=== PATIENT | male | born 1955 | race Caucasian/White ===

== ENCOUNTER → 2016-07-17 | Outpatient (REF) | payer OTHER ==
[~2016-07-17] MED LIST: NORC5TAB PO
[2016-07-17 12:17] LABS: ALBUMIN/GLOBULIN RATIO 1.21 (1.00-1.93); ALKALINE PHOSPHATASE 75 U/L (45-117); ALT/SGPT 46 U/L (12-78); ANION GAP 9 MEQ/L (8-16); AST/SGOT 32 U/L (15-37); BLOOD UREA NITROGEN 19 MG/DL (7-18); CALCIUM LEVEL 8.6 MG/DL (8.8-10.2); CARBON DIOXIDE LEVEL 27 MEQ/L (21-32); CHLORIDE LEVEL 106 MEQ/L (98-107); CHOLESTEROL LEVEL 175 MG/DL (<200); CREATININE FOR GFR 0.92 MG/DL (0.70-1.30); GLOMERULAR FILTRATION RATE > 60.0 (>49); GLUCOSE, FASTING 111 MG/DL (80-110); POTASSIUM SERUM 3.6 MEQ/L (3.5-5.1); SODIUM LEVEL 142 MEQ/L (136-145); TOTAL PROTEIN 7.3 GM/DL (6.4-8.2); TRIGLYCERIDES LEVEL 90 MG/DL (<150)
== END ==
LOC: M LABDRAW1 11:32
PROVIDERS: ATTEND Family Medicine
DX: R73.01 Impaired fasting glucose (principal); E78.2 Mixed hyperlipidemia

== ENCOUNTER 2016-10-30 12:20 | Observation (INO) | payer OTHER ==
[~2016-10-30] VITALS: Ht 172.7 cm; Wt 85.2 kg
[~2016-10-30 12:20] MED LIST changes: +NORC1TAB4 PO; -NORC5TAB PO
[2016-10-30] MEDS ORDERED: VITA200016 PO (12:28)
[2016-10-30] MEDS ORDERED: LISI10TA4 PO (12:28)
[2016-10-30] MEDS ORDERED: ONDANSETRON 4MG/2ML VIAL (J2405) IV ONE (13:15)
[2016-10-30] MEDS ORDERED: NS 1,000 ML IV ONE (13:15)
[2016-10-30] MEDS: MORPHINE 4 MG/ML 1ML SYRINGE IV PRN ×2 (13:35→14:23)
[2016-10-30 13:46] LABS: BASO % 0.6 % (0.0-1.0); EOS # 0.1 K/mm3 (0.0-0.50); EOS % 0.9 % (0.0-3.0); LARGE UNSTAINED CELL # 0.1 K/mm3 (0.0-0.4); LARGE UNSTAINED CELL % 1.2 % (0.0-4.0); LYMPH # 1.4 K/mm3 (1.5-4.5); LYMPH % 14.4 % (24.0-44.0); MEAN CORPUSCULAR HEMOGLOBIN 31.2 pg (27.0-33.0); MEAN CORPUSCULAR HGB CONC 35.5 g/dl (32.0-36.5); MEAN CORPUSCULAR VOLUME 87.9 fl (80.0-96.0); MONO # 0.6 K/mm3 (0.0-0.8); MONO % 5.9 % (0.0-5.0); NEUTROPHILS # 7.4 K/mm3 (1.8-7.7); PLATELET COUNT, AUTOMATED 198 k/mm3 (150-450); RED CELL DISTRIBUTION WIDTH 12.6 % (11.5-14.5); WHITE BLOOD COUNT 9.6 K/mm3 (4.0-10.0)
[2016-10-30 13:53] LABS: INR 1.11
[2016-10-30 14:13] LABS: ANION GAP 12 MEQ/L (8-16); BLOOD UREA NITROGEN 20 MG/DL (7-18); CALCIUM LEVEL 9.2 MG/DL (8.8-10.2); CARBON DIOXIDE LEVEL 23 MEQ/L (21-32); CHLORIDE LEVEL 107 MEQ/L (98-107); CREATININE FOR GFR 1.03 MG/DL (0.70-1.30); GLOMERULAR FILTRATION RATE > 60.0 (>49); GLUCOSE, FASTING 141 MG/DL (80-110); POTASSIUM SERUM 3.6 MEQ/L (3.5-5.1); SODIUM LEVEL 142 MEQ/L (136-145)
[2016-10-30] MEDS ORDERED: ISOVUE-370 76% 100ML VIAL (Q9967) As Ordered ONE (14:18)
[2016-10-30] MEDS ORDERED: MORPHINE 4 MG/ML 1ML SYRINGE IV ONE (15:00)
--- NOTE | 2016-10-30 15:05 | REP ---
Clinical: Trauma. Technique: Axial contrast enhanced images from the thoracic inlet to the upper abdomen using 100 ml Isovue 370 intravenous contrast material with coronal and sagittal re-formations. Comparison: 07/01/2006. Findings: Lung william demonstrate moderate chronic bibasilar changes along with mild bronchiectasis and minimal scattered areas of pleural thickening which remain relatively stable compared to 2007. A 3 mm soft tissue nodule in the subpleural right lower lobe (image 59) is unchanged. No acute consolidation/contusion, pleural effusion or pneumothorax. No significant nodule or mass lesion. Mediastinum is without evidence for trauma/injury and mild prominence to right hilar lymph nodes along with few scattered mediastinal lymph nodes remain stable compared to 2006. Musculoskeletal structures demonstrate age-related degenerative changes, and a very subtle nondisplaced posterior left ninth rib fracture cannot be excluded. Impression: Chronic stable changes as described above. No acute mediastinal or pleuroparenchymal process. Cannot exclude extremely subtle nondisplaced posterior left ninth rib fracture. Signed by Andreas Day MD 10/30/2016 02:57 P
--- NOTE | 2016-10-30 15:06 | REP ---
Clinical: Trauma. Technique: Axial contrast enhanced images from the lung bases to the pubic symphysis using 100 ml Isovue 370 intravenous contrast material with coronal and sagittal re-formations. Findings: Lung bases demonstrate chronic interstitial changes with mild bronchiectasis and suspected right hilar adenopathy. 3 mm noncalcified nodule in the periphery right lower lobe (image 10). These findings are relatively stable when compared to chest CT dated 2006. Visualized heart and pericardium appear normal. No evidence for solid organ injury. Liver, spleen, pancreas, gallbladder, bilateral adrenal glands and kidneys are normal. The enteric system is without obstruction or acute inflammatory process. Few scattered sigmoid diverticula noted without acute diverticulitis. Pelvis demonstrates normal bladder and coarse calcifications with otherwise normal prostate gland. No ascites. No free air. No adenopathy. Vasculature appears normal for age. Musculoskeletal structures demonstrate a nondisplaced fracture of the L1 and possibly L2 and L3 left transverse processes which should be correlated with physical examination and point of tenderness. The surrounding paraspinal musculature as well as remainder of the musculoskeletal structures appear intact. Impression: 1. Very subtle nondisplaced left L1 transverse process fracture and possible more subtle left transverse process fractures of L2 and L3. No other evidence for abdominopelvic trauma/injury. 2. No evidence for solid organ injury. 3. Scattered sigmoid diverticula without acute diverticulitis. Signed by Andreas Day MD 10/30/2016 02:58 P
[2016-10-30] MEDS ORDERED: ACETAMINOPHEN TAB 650MG DOSE (2X325MG) PO PRN (18:00)
[2016-10-30] MEDS ORDERED: MORPHINE 2 MG/ML 1ML SYRINGE IV PRN (18:00)
[2016-10-30] MEDS ORDERED: PROBCAP14 PO (18:16)
--- NOTE | 2016-10-30 18:57 | HPEPDOC ---
Medical History and Physical Date of Admission 10/30/2016 History and Physical Primary care provider: Dr. Mccord Attending: Dr. Tiana Nugent CHIEF COMPLAINT: Intractable back pain status post fall from a height of approximately 5 feet HISTORY OF PRESENT ILLNESS: Mr. Nagy is a 61-year-old male who was standing on some scaffolding that was approximately 5 feet off the ground while painting his house. This occurred earlier today. He believes that one of the boards may have broken or flipped and he fell to the ground landing on his back on a 2 x 4 that was laying on the concrete. He did not lose consciousness, and does not believe that he struck his head. His did witness the fall as well and she is accompanying him in the emergency department here today. Since the fall he has had intractable back pain, mostly on the left side. He is essentially unable to move around secondary to pain, he is being given 12 mg of morphine in the emergency department with little to no improvement. CT of the chest with contrast cannot exclude a subtle nondisplaced posterior left ninth rib fracture , and a CT of the abdomen and pelvis reveals subtle nondisplaced left transverse process fractures of L1, L2, and L3. Orthopedic surgery was called by the ED provider who recommended that he be admitted to the hospitalist for intractable pain control, but he agreed to be consulted. ALLERGIES: No known drug allergies PAST MEDICAL HISTORY: Hypertension Prediabetes being controlled with diet Hyperlipidemia being controlled with diet PAST SURGICAL HISTORY: Right inguinal hernia repair approximately one year ago Jaw fracture approximately 40 years ago SOCIAL HISTORY: He lives at home with his . He is currently retired. He denies any tobacco use, he does have an occasional glass of wine, and denies illicit drug use. FAMILY HISTORY: He states that diabetes is prevalent in his family, both his parents, many of his siblings, and some of his aunts and uncles all have diabetes. A few of them also have heart disease as well. He does have an uncle with colon cancer REVIEW OF SYSTEMS: Constitutional: Patient denies fevers, chills, night sweats, recent weight gain/ loss. HEENT: Patient denies blurred or double vision, transient visual disturbances, postnasal drip, epistaxis, sore throat, difficulty chewing or swallowing food. Cardiovascular: Patient denies palpitations, exertional dyspnea, orthopnea, edema of the extremities, claudication. Respiratory: Patient denies dyspnea, wheezing, cough, hemoptysis, sputum production. Gastrointestinal: Patient denies nausea, vomiting, diarrhea, constipation, melena, hematochezia, hematemesis, jaundice. Musculoskeletal: He is in a significant amount of pain, the worst part is his left back. He also states that he has spasms wrapping around both sides of the lower rib cage. The pain is described as severe, spasmodic, unrelenting. There is no radiation. Onset was a few hours ago after his fall. PHYSICAL EXAMINATION: Vitals: Temperature 95.1, pulse 84 regular, respiratory rate 18, blood pressure 163/92, pulse oximetry is 92% on room air General: Awake, alert, oriented 3. He does appear to be in a significant amount of pain. He is barely able to roll over for the examination. Otherwise, he remains essentially motionless in the ED stretcher. HEENT: Head normocephalic atraumatic, conjunctiva are pink, sclera are nonicteric, buccal mucosa is pink and moist with no lesions in the oropharynx. He is missing multiple teeth. Hearing is grossly intact to conversation. Respiratory: Clear to auscultation bilaterally with no wheezes, rales, or rhonchi. Cardiovascular: Regular rate and rhythm, with no rubs, gallops, or murmur. Abdomen: Soft, tender in the midepigastric area and extending out along the bilateral infracostal areas, nondistended, no hepatosplenomegaly appreciated. Bowel sounds present. Extremities: 2+ pulses in the radial and dorsalis pedis bilaterally. No evidence of clubbing or cyanosis. Integument: He does have just a minimal amount of ecchymoses over the the mid lower back Musculoskeletal: He does have multiple muscle spasms in his paraspinal musculature, as well as in the intercostal musculature of the lower ribs, as well as the upper abdomen. ASSESSMENT: 1. Intractable back pain status post fall 2. Hypertension 3. Vitamin D deficiency 4. DVT prophylaxis with Lovenox PLAN: Will admit him to [facility] for O2 monitoring as he is essentially a narcotic na ve patient. Pain control will be achieved with Percocets, as needed IV morphine , and cyclobenzaprine for muscle spasms. He will have Zofran IV available as needed for nausea. Will recommend physical therapy evaluate and treat him as necessary. Dr. Laureano of orthopedic surgery has been contacted by the ED physician and consulted. We will continue his lisinopril for hypertension, his blood pressure was elevated which is most likely due to his pain. We'll continue his vitamin D supplementation for vitamin D deficiency. The patient does report that he suffered from constipation with the use of opiates in the past, therefore we will preemptively start him on Senokot-S. Hopefully we can assist him in gettting through this acute phase of intractable pain in a monitored setting until such time that he is able to adequately function to take care of himself at home. 1 L of normal saline was given to the patient in the ED for an elevated BUN to creatinine ratio. A CBC was ordered daily for 3 days as the patient is on Lovenox for DVT prophylaxis. No additional labs will be ordered as I feel that this will be a waste of resources, and I do not anticipate that he would have any new electrolyte imbalances, or kidney issues. Further diagnostics may be warranted if the patient begins to exhibit any new symptoms. My preceptor for this patient encounter was physically present in the building during the encounter and was fully available. As needed, all aspects of the patient interview, examination, medical decision making process, and medical care plan development were reviewed and approved by the preceptor. Preceptor is aware and concurs with the plan as stated in the body of this note and will attest to such by his/her cosignature. Vital Signs Vital Signs Date Time Temp Pulse Resp B/P (MAP) Pulse Ox O2 Delivery O2 Flow Rate FiO2 10/30/16 15:05 18 10/30/16 13:09 10/30/16 12:20 95.1 84 92 Room Air Laboratory Data Labs 24H Laboratory Tests 2 10/30/16 13:28: White Blood Count 9.6, Red Blood Count 5.00, Hemoglobin 15.6, Hematocrit 43.9, Mean Corpuscular Volume 87.9, Mean Corpuscular Hemoglobin 31.2, Mean Corpuscular Hemoglobin Concent 35.5, Red Cell Distribution Width 12.6, Platelet Count 198, Neutrophils (%) (Auto) 77.0H, Lymphocytes (%) (Auto) 14.4L, Monocytes (%) (Auto) 5.9H, Eosinophils (%) (Auto) 0.9, Basophils (%) (Auto) 0.6 , Neutrophils # (Auto) 7.4, Lymphocytes # (Auto) 1.4L, Monocytes # (Auto) 0.6, Eosinophils # (Auto) 0.1, Basophils # (Auto) 0.0, Large Unclassified Cells % 1.2 , Large Unclassified Cells # 0.1, Prothrombin Time 14.5, Prothromb Time International Ratio 1.11, Activated Partial Thromboplast Time 26.9, Anion Gap 12 , Glomerular Filtration Rate > 60.0, Blood Urea Nitrogen 20H, Creatinine 1.03, Sodium Level 142, Potassium Level 3.6, Chloride Level 107, Carbon Dioxide Level 23, Calcium Level 9.2 10/30/16 16:26: Urine Appearance CLEAR, Urine Color YELLOW, Urine pH 6.0, Urine Specific [place] 1.025, Urine Protein NEGATIVE, Urine Glucose (UA) NEGATIVE, Urine Ketones NEGATIVE, Urine Urobilinogen 0.2, Urine Bilirubin NEGATIVE, Urine Leukocyte Esterase NEGATIVE, Urine Blood NEGATIVE, Urine Nitrite NEGATIVE, Urine WBC (Auto) 1, Urine RBC (Auto) 1, Urine Hyaline Casts (Auto) 0, Urine Bacteria (Auto) NEGATIVE, Urine Squamous Epithelial Cells 0, Urine Sperm (Auto) CBC/BMP Laboratory Tests 10/30/16 13:28 Red Blood Count 5.00, Mean Corpuscular Volume 87.9, Mean Corpuscular Hemoglobin 31.2, Mean Corpuscular Hemoglobin Concent 35.5, Red Cell Distribution Width 12.6 , Neutrophils (%) (Auto) 77.0 H, Lymphocytes (%) (Auto) 14.4 L, Monocytes (%) ( Auto) 5.9 H, Eosinophils (%) (Auto) 0.9, Basophils (%) (Auto) 0.6, Neutrophils # (Auto) 7.4, Lymphocytes # (Auto) 1.4 L, Monocytes # (Auto) 0.6, Eosinophils # (Auto) 0.1, Basophils # (Auto) 0.0, Calcium Level 9.2 Home Medications Scheduled Lisinopril (Lisinopril) 10 Mg Tab, 10 MG PO DAILY Vitamin D (Vitamin D) 2,000 Unit Cap, 4,000 MG PO DAILY Scheduled PRN (Probiotic) 1 Cap Cap, 1 CAP PO DAILY PRN for STOMACH UPSET Allergies Coded Allergies: No Known Drug Allergy (Unverified Allergy, Unknown, 10/30/16) NANO AVALOS DO Oct 30, 2016 18:57
[2016-10-30] MEDS: CYCLOBENZAPRINE 5MG TABLET PO PRN (21:01)
[2016-10-30] MEDS: SENOKOT S TAB PO SCH (21:01)
[2016-10-30 22:00] VITALS: BP 161/81
[2016-10-31] MEDS: PERCOCET 5MG/325MG TAB PO PRN ×3 (00:09→12:53)
[2016-10-31] MEDS: CYCLOBENZAPRINE 5MG TABLET PO PRN (05:24)
[2016-10-31 06:00] VITALS: BP 162/84
[2016-10-31 06:33] LABS: MEAN CORPUSCULAR HEMOGLOBIN 31.2 pg (27.0-33.0); MEAN CORPUSCULAR HGB CONC 35.2 g/dl (32.0-36.5); MEAN CORPUSCULAR VOLUME 88.7 fl (80.0-96.0); RED CELL DISTRIBUTION WIDTH 13.1 % (11.5-14.5); WHITE BLOOD COUNT 10.2 K/mm3 (4.0-10.0)
--- NOTE | 2016-10-31 06:51 | ECGEPIP ---
Stationary ECG Study [facility] Test Date: 2016-10-31 Pat Name: SUMAN EAGLE Department: Room: Y2208-72 Gender: M Director Biostatistics: : 1955 Requested By: ANIBAL MIDDLETON Order Number: [id number] Reading MD: Cora Benitez Measurements Intervals [place] Rate: 79 P: 40 NV: 191 QRS: 2 QRSD: 93 T: 15 QT: 395 QTc: 454 Interpretive Statements SINUS RHYTHM BORDERLINE Left ventricular hypertrophy NO PRIOR Electronically Signed On 10-31-2016 6:51:18 EDT by Cora Benitez
[2016-10-31] MEDS ORDERED: ENOXAPARIN 40 MG/0.4 ML SYRINGE (J1650) SC SCH (09:00)
[2016-10-31] MEDS ORDERED: VITAMIN D 1,000 INTERNATIONAL UNITS TABLET PO SCH (09:00)
[2016-10-31] MEDS ORDERED: LISINOPRIL 10 MG TAB PO SCH (09:00)
[2016-10-31 09:21] VITALS: BP 162/84
[2016-10-31] MEDS: SENOKOT S TAB PO SCH (09:21)
[2016-10-31] MEDS ORDERED: IBUP-1022 PO (12:06)
[2016-10-31] MEDS ORDERED: CYCL5TAB PO (12:06)
[2016-10-31] MEDS ORDERED: PRIL20CA9 PO (12:06)
[2016-10-31] MEDS ORDERED: PERCOCET PO (12:06)
[2016-10-31] MEDS ORDERED: SENO8.6T10 PO (12:24)
--- NOTE | 2016-11-01 08:50 | DSES ---
DATE OF ADMISSION: 10/30/2016 DATE OF DISCHARGE: 10/31/2016 REASON FOR ADMISSION: Mr. Nagy was admitted to hospital after presentation to emergency department (ED) following a fall from a ladder approximately 5 feet, fell onto a hard object on the ground, specifically a 2 x 4. He sustained injury to the transverse process of L1 and L2 and L3; and also, subtle nondisplaced posterior 9th rib fracture "cannot be excluded." No loss of consciousness. No head injury. No evidence of internal bleeding. Hemoglobin was 15.6 on admission, is 13.9 on discharge. Was receiving intravenous (IV) fluids, however, metabolic profile was unremarkable except for fasting glucose of 141 on 10/30/2016, "fasting glucose." Likely, it was not fasting. Urinalysis was negative, so no evidence of renal injury. The patient was given narcotic pain medications. Admitted to hospital. Today, he was able to ambulate and was seen and tolerating pain adequately using Roxicet. He was seen in consultation by Dr. Laureano, who affirmed a 7-pound weightlifting limit. Otherwise, activity as tolerated. DISCHARGE DIAGNOSES: 1. Transverse process fracture involving left L1, L2, and L3, probable left 9th rib fracture, as well. 2. Pain associated with injury. 3. Fall from height. CHRONIC DIAGNOSIS: Hypertension. PLAN: The patient will be discharged on ibuprofen 600 mg by mouth three times a day with a recommendation for omeprazole 20 mg a day to reduce risk for gastrointestinal (GI) bleeding. He will also have a prescription for Percocet 1-2 four times a day as needed pain, maximum daily dose of six, and 30 were dispensed. He will followup with Dr. Mccord in approximately 2 weeks. He is requested to monitor his blood pressure at home, to monitor for possibility of blood pressure increased triggered by use of ibuprofen, and contact Dr. Mccord if blood pressure does seem to rise for alternative suggestions for pain control. Activity will be as tolerated with a 7-pound weightlifting limit as imposed by Dr. Laureano. Also, recommend no operating of motor vehicles due to narcotic effect. Constipation prophylaxis will be provided with Senokot-S one by mouth twice a day. The dose may be titrated as required, and other measures can be introduced if this is not adequate. Diet as tolerated. Suggest a [id number] limitation due to history of hypertension.
--- NOTE | 2016-11-01 20:21 | CR ---
DATE OF CONSULTATION: 10/31/16. REASON FOR CONSULTATION: I was asked to see the patient to evaluate back discomfort after a fall from scaffolding. HISTORY: This 61-year-old gentleman was working on his own house and he fell off the scaffolding and landed on pavement. He says he fell about five feet. He had significant pain in the back, bad enough that he came to the emergency room for further evaluation. His pain there was controlled with narcotic analgesics. He had a CT scan. CT scan reflected nondisplaced left L1 transverse process fracture and I agree with the interpretation that there are likely transverse processes fractures of L2 and L3 which are harder to see. The patient was admitted for an observation by the hospitalist. Also of note, he had a CT scan of the chest that suggested the possibility of the left ninth rib fracture. ALLERGIES: The patient has no known allergies. MEDICAL HISTORY: Includes hypertension. SURGICAL HISTORY: Inguinal hernia repair on the right and jaw fracture many years ago. SOCIAL HISTORY: He is , lives with his spouse. Retired. Does not smoke, occasionally drinks. FAMILY HISTORY: Not contributory. REVIEW OF SYSTEMS: He is complaining of discomfort in the left side of his ribcage and discomfort in his back. He is not complaining of fevers or chills. He is not complaining of shortness of breath but it does hurt a bit to take a deep breath. He reports no heart trouble or cardiac disability. No peripheral edema. He reports no stomach trouble. He reports no weakness or numbness or tingling. CLINICAL EXAMINATION: He is alert, oriented and cooperative. Mood and affect appropriate. I met the patient as he was ambulating in the hallway with nursing staff. He was appreciated to have significant pain to the left side of his lumbar spine but able to stand up straight. He also had pain to the left side of the rib cage with palpation of this area, seemed to be consistent with around the ninth rib. There is no abdominal distension. He is not short of breath. The lower extremities were neurologically intact without any deficit. No peripheral edema. IMPRESSION: Multiple transverse process fractures after a fall, likely ninth rib fracture. RECOMMENDATIONS: I talked to the patient about followup. I would like to see the patient in the next 7-10 days and reevaluate him. We would check repeat x-rays to make sure there is been no appreciation of interval compression deformity, although one was not appreciated on the CT scan. These fractures will not require bracing for stability, but may benefit from bracing for comfort depending on how he is doing when he follows up. He should use his narcotic analgesics sparingly. This was all discussed with the patient who is comfortable with that plan. For further details, please refer to medical record. Approximately 30 minutes were invested in this case including more than 50% [id number] time. LEW
== END 2016-10-31 14:05 | disposition home or self-care (01) ==
LOC: M ED 12:20 → M ED INP 19:00 → M MS5PR 19:50
PROVIDERS: ADMIT Internal Medicine; ATTEND Family Medicine
DX: S32.018A Other fracture of first lumbar vertebra, initial encounter for closed fracture (principal); S32.029A Unspecified fracture of second lumbar vertebra, initial encounter for closed fracture; S32.039A Unspecified fracture of third lumbar vertebra, initial encounter for closed fracture; R93.7 Abnormal findings on diagnostic imaging of other parts of musculoskeletal system; W11.XXXA Fall on and from ladder, initial encounter; Y92.007 Garden or yard of unspecified non-institutional (private) residence as the place of occurrence of the external cause; Y93.H9 Activity, other involving exterior property and land maintenance, building and construction; Y99.8 Other external cause status; I10 Essential (primary) hypertension; R73.03 Prediabetes; E78.5 Hyperlipidemia, unspecified; E55.9 Vitamin D deficiency, unspecified; Z79.899 Other long term (current) drug therapy
CPT/HCPCS: 36415; 71260; 74177; 80048; 81001; 85025; 85027; 85610; 85730; 86850; 86900; 86901; 93005; 96361; 96372; 96374; 96375; 96376; 97162; 99284; J1650; J2405; Q9967

== ENCOUNTER → 2017-01-01 | Outpatient (REF) | payer OTHER ==
[~2017-01-01] MED LIST changes: +CYCL5TAB PO; +IBUP-1022 PO; +LISI10TA4 PO; +PERCOCET PO; +PRIL20CA9 PO; +PROBCAP14 PO; +SENO8.6T10 PO; +VITA200016 PO
== END ==
LOC: M LABDRAW1 11:22
PROVIDERS: ATTEND Family Medicine
DX: E78.2 Mixed hyperlipidemia (principal)

== ENCOUNTER → 2017-01-21 | Outpatient (REF) | payer OTHER ==
[2017-01-28 00:07] LABS: HLA B5701-1 Negative (.)
== END ==
LOC: M LABDRAW1 12:25
PROVIDERS: ATTEND Physician Assistant
DX: S32.038D Other fracture of third lumbar vertebra, subsequent encounter for fracture with routine healing (principal); X58.XXXD Exposure to other specified factors, subsequent encounter; Y93.9 Activity, unspecified; Y92.9 Unspecified place or not applicable; Y99.8 Other external cause status

== ENCOUNTER → 2017-07-02 | Outpatient (REF) | payer OTHER ==
[2017-07-02 12:49] LABS: ALBUMIN/GLOBULIN RATIO 1.08 (1.00-1.93); ALKALINE PHOSPHATASE 76 U/L (45-117); ALT/SGPT 50 U/L (12-78); ANION GAP 8 MEQ/L (8-16); AST/SGOT 32 U/L (7-37); BILIRUBIN,TOTAL 0.7 MG/DL (0.2-1.0); BLOOD UREA NITROGEN 16 MG/DL (7-18); CALCIUM LEVEL 8.7 MG/DL (8.8-10.2); CARBON DIOXIDE LEVEL 28 MEQ/L (21-32); CHLORIDE LEVEL 108 MEQ/L (98-107); CHOLESTEROL LEVEL 160 MG/DL (<200); CREATININE FOR GFR 1.04 MG/DL (0.70-1.30); GLOMERULAR FILTRATION RATE > 60.0 (>49); GLUCOSE, FASTING 106 MG/DL (70-100); HDL CHOLESTEROL 32 MG/DL (>40); LDL CHOLESTEROL 100.4 MG/DL (<100); NON-HDL-C 128 MG/DL; PSA SCREENING 1.07 NG/ML (< 4.0); SODIUM LEVEL 144 MEQ/L (136-145); TOTAL PROTEIN 7.7 GM/DL (6.4-8.2); TRIGLYCERIDES LEVEL 138 MG/DL (<150)
[2017-07-02 13:25] LABS: ESTIMATED AVERAGE GLUCOSE 123 MG/DL (60-110); HEMOGLOBIN A1c 5.9 %
== END ==
LOC: M LABDRAW1 09:56
DX: E78.2 Mixed hyperlipidemia (principal); R73.01 Impaired fasting glucose; Z12.5 Encounter for screening for malignant neoplasm of prostate

== ENCOUNTER → 2018-07-13 | Outpatient (REF) | payer OTHER ==
[2018-07-13 13:46] LABS: HEMOGLOBIN A1c 6.3 %
[2018-07-13 14:05] LABS: ALT/SGPT 54 U/L (12-78); BILIRUBIN,TOTAL 1.6 MG/DL (0.2-1.0); BLOOD UREA NITROGEN 17 MG/DL (7-18); CALCIUM LEVEL 8.8 MG/DL (8.8-10.2); CARBON DIOXIDE LEVEL 27 MEQ/L (21-32); CHLORIDE LEVEL 104 MEQ/L (98-107); CHOLESTEROL LEVEL 179 MG/DL (<200); CHOLESTEROL RISK RATIO 5.264 (<5); CREATININE FOR GFR 1.09 MG/DL (0.70-1.30); GLOMERULAR FILTRATION RATE > 60.0 (>49); GLUCOSE, FASTING 145 MG/DL (70-100); HDL CHOLESTEROL 34 MG/DL (>40); LDL CHOLESTEROL 120 MG/DL (<100); NON-HDL-C 145 MG/DL; POTASSIUM SERUM 3.6 MEQ/L (3.5-5.1); SODIUM LEVEL 138 MEQ/L (136-145); TOTAL PROTEIN 7.7 GM/DL (6.4-8.2); TRIGLYCERIDES LEVEL 126 MG/DL (<150)
== END ==
LOC: M LABDRAW1 12:18
PROVIDERS: ATTEND Family Medicine
DX: I10 Essential (primary) hypertension (principal); R73.01 Impaired fasting glucose; Z12.5 Encounter for screening for malignant neoplasm of prostate

== ENCOUNTER → 2018-11-24 | Outpatient (REF) | payer OTHER ==
[~2018-11-24] MED LIST changes: -NORC1TAB4 PO; +NORC1TAB7 PO
[2018-11-24 12:39] LABS: BLOOD UREA NITROGEN 22 MG/DL (7-18); CALCIUM LEVEL 8.7 MG/DL (8.8-10.2); CARBON DIOXIDE LEVEL 28 MEQ/L (21-32); CHLORIDE LEVEL 107 MEQ/L (98-107); CHOLESTEROL LEVEL 164 MG/DL (<200); CHOLESTEROL RISK RATIO 4.555 (<5); CREATININE FOR GFR 1.13 MG/DL (0.70-1.30); GLOMERULAR FILTRATION RATE > 60.0 (>49); GLUCOSE, FASTING 107 MG/DL (70-100); HDL CHOLESTEROL 36 MG/DL (>40); LDL CHOLESTEROL 110 MG/DL (<100); NON-HDL-C 128 MG/DL; POTASSIUM SERUM 3.7 MEQ/L (3.5-5.1); SODIUM LEVEL 140 MEQ/L (136-145); TRIGLYCERIDES LEVEL 89 MG/DL (<150)
[2018-11-24 13:56] LABS: HEMOGLOBIN A1c 6.2 %
== END ==
LOC: M LABDRAW1 09:36
PROVIDERS: ATTEND Family Medicine
DX: R73.01 Impaired fasting glucose (principal); E78.2 Mixed hyperlipidemia

== ENCOUNTER → 2019-07-12 | Outpatient (REF) | payer OTHER ==
[2019-07-12 13:57] LABS: ALT/SGPT 58 U/L (12-78); BLOOD UREA NITROGEN 21 MG/DL (7-18); CALCIUM LEVEL 9.5 MG/DL (8.8-10.2); CARBON DIOXIDE LEVEL 28 MEQ/L (21-32); CHLORIDE LEVEL 106 MEQ/L (98-107); CHOLESTEROL LEVEL 192 MG/DL (<200); CHOLESTEROL RISK RATIO 6.193 (<5); CREATININE FOR GFR 1.16 MG/DL (0.70-1.30); GLOMERULAR FILTRATION RATE > 60.0 (>49); GLUCOSE, FASTING 127 MG/DL (70-100); HDL CHOLESTEROL 31 MG/DL (>40); LDL CHOLESTEROL 129 MG/DL (<100); NON-HDL-C 161 MG/DL; SODIUM LEVEL 139 MEQ/L (136-145); TRIGLYCERIDES LEVEL 161 MG/DL (<150)
[2019-07-12 14:10] LABS: HEMOGLOBIN A1c 6.7 %
== END ==
LOC: M SFHCADAM 08:52
PROVIDERS: ATTEND Family Medicine
DX: E78.2 Mixed hyperlipidemia (principal); R73.01 Impaired fasting glucose; Z12.5 Encounter for screening for malignant neoplasm of prostate

== ENCOUNTER → 2020-05-06 | Outpatient (REF) | payer MEDICARE, OTHER ==
[~2020-05-06] MED LIST changes: +LISI10TA22 PO; -LISI10TA4 PO
[2020-05-06 13:55] LABS: HEMATOCRIT 45.5 % (42.0-52.0); HEMOGLOBIN 15.1 g/dl (13.5-17.5); MEAN CORPUSCULAR HEMOGLOBIN 29.6 pg (27.0-33.0); MEAN CORPUSCULAR HGB CONC 33.2 g/dl (32.0-36.5); MEAN CORPUSCULAR VOLUME 89.2 fl (80.0-96.0); PLATELET COUNT, AUTOMATED 183 10^3/uL (150-450); WHITE BLOOD COUNT 7.5 10^3/uL (4.0-10.0)
[2020-05-06 15:15] LABS: ALT/SGPT 50 U/L (12-78); BILIRUBIN,TOTAL 1.2 MG/DL (0.2-1.0); BLOOD UREA NITROGEN 16 MG/DL (7-18); CALCIUM LEVEL 9.5 MG/DL (8.8-10.2); CARBON DIOXIDE LEVEL 28 MEQ/L (21-32); CHLORIDE LEVEL 105 MEQ/L (98-107); CHOLESTEROL LEVEL 182 MG/DL (<200); CREATININE FOR GFR 1.05 MG/DL (0.70-1.30); GLOMERULAR FILTRATION RATE > 60.0 (>49); GLUCOSE, FASTING 114 MG/DL (70-100); HDL CHOLESTEROL 35 MG/DL (>40); LDL CHOLESTEROL 122 MG/DL (<100); NON-HDL-C 147 MG/DL; POTASSIUM SERUM 3.8 MEQ/L (3.5-5.1); SODIUM LEVEL 138 MEQ/L (136-145); TOTAL PROTEIN 7.7 GM/DL (6.4-8.2); TRIGLYCERIDES LEVEL 125 MG/DL (<150)
[2020-05-06 16:25] LABS: HEMOGLOBIN A1c 5.9 %
== END ==
LOC: M PLALAB 11:26
PROVIDERS: ATTEND Family Medicine
DX: N48.1 Balanitis (principal); E11.9 Type 2 diabetes mellitus without complications; E78.2 Mixed hyperlipidemia

== ENCOUNTER → 2020-07-10 | Outpatient (CLI) | payer MEDICARE, OTHER ==
[~2020-07-10] MED LIST changes: +BISO5TAB14 PO; +CICL0.7733 EX; +LISI20TA33 PO; +METF500T13 PO; +OCUV1CAP4 PO; +PROTANDIM PO; +TUMS500C PO; +VITA200038 PO
--- NOTE | 2020-07-10 12:54 | REP ---
INDICATION: PRE OP. COMPARISON: No comparison chest x-ray. There is a comparison chest CT study from October 30, 2016. TECHNIQUE: Two views.. FINDINGS: The lungs are well inflated and free of infiltrate. The pleural angles are sharp. The heart size is normal. Pulmonary vasculature is not increased. No significant bony abnormality is seen. There is benign pleural thickening bilaterally. This is unchanged. There are degenerative changes in the thoracic spine and aorta. IMPRESSION: No active disease.. <Electronically signed by Omer Coughlin > 07/10/20 [id number]
== END ==
LOC: M ADAMS 11:03
PROVIDERS: ATTEND Urology
DX: Z01.818 Encounter for other preprocedural examination (principal); N47.1 Phimosis; M51.34 Other intervertebral disc degeneration, thoracic region
CPT/HCPCS: 71046; 80048; 85027; 85610; 85730; 93005; G0402; G0463

== ENCOUNTER → 2020-07-10 | Outpatient (REF) | payer MEDICARE, OTHER ==
[2020-07-10 12:40] LABS: HEMATOCRIT 45.7 % (42.0-52.0); HEMOGLOBIN 15.6 g/dl (13.5-17.5); MEAN CORPUSCULAR HEMOGLOBIN 30.3 pg (27.0-33.0); MEAN CORPUSCULAR HGB CONC 34.1 g/dl (32.0-36.5); MEAN CORPUSCULAR VOLUME 88.7 fl (80.0-96.0); PLATELET COUNT, AUTOMATED 170 10^3/uL (150-450); RED BLOOD COUNT 5.15 10^6/uL (4.30-6.10); WHITE BLOOD COUNT 6.1 10^3/uL (4.0-10.0)
[2020-07-10 12:50] LABS: INR 1.1; PROTHROMBIN TIME 14.4 SECONDS (12.5-14.3)
[2020-07-10 12:51] LABS: PARTIAL THROMBOPLASTIN TIME 30.2 SECONDS (24.2-38.5)
[2020-07-10 13:15] LABS: BLOOD UREA NITROGEN 17 MG/DL (7-18); CALCIUM LEVEL 9.2 MG/DL (8.8-10.2); CARBON DIOXIDE LEVEL 28 MEQ/L (21-32); CHLORIDE LEVEL 106 MEQ/L (98-107); CREATININE FOR GFR 0.91 MG/DL (0.70-1.30); GLOMERULAR FILTRATION RATE > 60.0 (>49); GLUCOSE, FASTING 126 MG/DL (70-100); SODIUM LEVEL 141 MEQ/L (136-145)
== END ==
LOC: M LABSMT 11:10 → M SFHCADAM 11:13
PROVIDERS: ATTEND Urology
DX: Z01.818 Encounter for other preprocedural examination (principal); N47.1 Phimosis

== ENCOUNTER → 2020-07-13 | Outpatient (CLI) | payer OTHER, MEDICARE ==
[~2020-07-13] MED LIST changes: -BISO5TAB14 PO; -LISI20TA33 PO; -VITA200038 PO
== END ==
LOC: M LABSMTC 10:53
PROVIDERS: ATTEND Anesthesiology
DX: Z01.812 Encounter for preprocedural laboratory examination (principal)

== ENCOUNTER 2020-07-18 09:04 | Day surgery (SDC) | payer MEDICARE, OTHER ==
[~2020-07-18] VITALS: Ht 172.7 cm; Wt 90.2 kg
[~2020-07-18 09:04] MED LIST changes: +ACETAMINOPHEN 1000MG 100ML IV BTL (OFIRMEV) (J0131 PER 10MG) As Ordered ONE; +KETOROLAC 60MG 2ML VIAL As Ordered ONE; +LIDOCAINE 2% 100MG/5ML SDV (FOR ANES.) As Ordered ONE; +LR 1,000 ML IV SCH; +MIDAZOLAM INJ 2MG/2ML VIAL (J2250 PER 1MG) As Ordered ONE; +ONDANSETRON 4MG/2ML VIAL As Ordered ONE; +ceFAZolin SOD 2 GM in IV 1 EA IV ONE; +ceFAZolin SOD 2 GM in IV 1 EA IV SCH; +dexameTHASONE 4 MG/ML 1ML VIAL (J1100 PER 1MG) As Ordered ONE; +fentaNYL 100 MCG/2 ML INJECTION (J3010) As Ordered ONE; +propofoL 200 MG/20 ML VIAL As Ordered ONE
[2020-07-18] MEDS ORDERED: LISI20TA33 PO (09:13)
[2020-07-18] MEDS ORDERED: BISO5TAB14 PO (09:32)
[2020-07-18] MEDS ORDERED: VITA200038 PO (09:32)
[2020-07-18] MEDS ORDERED: BACITRACIN OINTMENT 30GM TUBE As Ordered ONE (10:09)
[2020-07-18] MEDS ORDERED: bisoproloL fumarate 5 MG TAB PO ONE (10:10)
[2020-07-18 10:13] VITALS: BP 180/110
[2020-07-18] MEDS ORDERED: GLYCOPYRROLATE INJ 0.2 MG/ML 2 ML VIAL As Ordered ONE (12:10)
[2020-07-18] MEDS ORDERED: ePHEDrine SULFATE 25 MG/5 ML(5MG/ML) SYRINGE As Ordered ONE ×2 (12:10→12:25)
[2020-07-18] MEDS ORDERED: fentaNYL 100 MCG/2 ML INJECTION (J3010) IV PRN (13:00)
[2020-07-18] MEDS ORDERED: ONDANSETRON 4MG/2ML VIAL IV PRN (13:00)
[2020-07-18] MEDS ORDERED: LR 1,000 ML IV SCH (13:00)
[2020-07-18] MEDS ORDERED: PERCOCET 5MG/325MG TAB PO PRN (13:00)
[2020-07-18] MEDS ORDERED: HYDROMORPHONE HCL 0.5 MG/ 0.5 ML SYRINGE (J1170 PER 1) IV PRN (13:00)
[2020-07-18] MEDS ORDERED: oxyCODONE 5MG TAB PO PRN (13:00)
[2020-07-18 14:25] VITALS: BP 164/93
--- NOTE | 2020-07-18 14:41 | ROOPDOC ---
[facility] Report Of Operation Report of Operation DATE OF PROCEDURE: 07/18/20 PREOPERATIVE DIAGNOSIS: Phimosis. POSTOPERATIVE DIAGNOSIS: Phimosis. PROCEDURE: Circumcision. SURGEON: Sara Bowie MD [employer] OPERATOR: None. ANESTHESIA: General. OPERATIVE INDICATIONS: This is a 65-year-old male with phimosis and recurrent episodes of balanitis who was brought to the operating room today for treatment. DESCRIPTION OF PROCEDURE: The patient was brought to the operating room and general anesthesia was induced. Prophylactic antibiotics were infused. He has then placed in the supine position and prepped and draped in the usual sterile fashion. At this point, circumcising incisions were made at the level of the coronal sulcus with the foreskin retracted over the glans and then also with foreskin retracted down off the glans. All the foreskin in between the two incisions was then removed using electrocautery. Once the foreskin was removed, any areas of bleeding were controlled with electrocautery. When satisfied with hemostasis, the skin of the penile shaft was then re-approximated to the glans with interrupted 3-0 chromic sutures. Once that was done, dry dressings were applied including a Quoc and Coban and then this was my conclusion of the procedure. The patient was then awakened from anesthesia and transferred to the recovery room in stable condition. Estimated blood loss: 10 ml. Complications: None. Specimens: Foreskin. PLAN: The patient will keep his dressings on and remove them in two days. He will follow up in urology clinic in 2 to 3 weeks for a postoperative visit. SARA BOWIE MD Jul 18, 2020 14:41
== END 2020-07-18 14:35 | disposition home or self-care (01) ==
LOC: M SDC 09:04
PROVIDERS: ATTEND Urology
DX: N47.1 Phimosis (principal); I10 Essential (primary) hypertension; K21.9 Gastro-esophageal reflux disease without esophagitis; E11.9 Type 2 diabetes mellitus without complications; E88.81 Metabolic syndrome and other insulin resistance; Z79.84 Long term (current) use of oral hypoglycemic drugs; N40.0 Benign prostatic hyperplasia without lower urinary tract symptoms; E78.5 Hyperlipidemia, unspecified; G47.33 Obstructive sleep apnea (adult) (pediatric); N52.9 Male erectile dysfunction, unspecified; Z87.891 Personal history of nicotine dependence; Z79.899 Other long term (current) drug therapy
CPT/HCPCS: 54161; 88304; J0131; J0690; J1100; J1885; J2250; J2405; J3010

== ENCOUNTER → 2020-11-06 | Outpatient (CLI) | payer MEDICARE, OTHER ==
[~2020-11-06] MED LIST changes: -ACETAMINOPHEN 1000MG 100ML IV BTL (OFIRMEV) (J0131 PER 10MG) As Ordered ONE; +BISO5TAB14 PO; -KETOROLAC 60MG 2ML VIAL As Ordered ONE; -LIDOCAINE 2% 100MG/5ML SDV (FOR ANES.) As Ordered ONE; +LISI20TA33 PO; -LR 1,000 ML IV SCH; -MIDAZOLAM INJ 2MG/2ML VIAL (J2250 PER 1MG) As Ordered ONE; -ONDANSETRON 4MG/2ML VIAL As Ordered ONE; +VITA200038 PO; -ceFAZolin SOD 2 GM in IV 1 EA IV ONE; -ceFAZolin SOD 2 GM in IV 1 EA IV SCH; -dexameTHASONE 4 MG/ML 1ML VIAL (J1100 PER 1MG) As Ordered ONE; -fentaNYL 100 MCG/2 ML INJECTION (J3010) As Ordered ONE; -propofoL 200 MG/20 ML VIAL As Ordered ONE
[2020-11-06 14:13] LABS: BLOOD UREA NITROGEN 21 MG/DL (7-18); CALCIUM LEVEL 8.8 MG/DL (8.8-10.2); CARBON DIOXIDE LEVEL 28 MEQ/L (21-32); CHLORIDE LEVEL 106 MEQ/L (98-107); CREATININE FOR GFR 0.98 MG/DL (0.70-1.30); GLOMERULAR FILTRATION RATE > 60.0 (>49); GLUCOSE, FASTING 129 MG/DL (70-100); SODIUM LEVEL 139 MEQ/L (136-145)
[2020-11-06 14:17] LABS: HEMOGLOBIN A1c 6.1 %
[2020-11-06 14:21] LABS: CREATININE, URINE 41.9 MG/DL; MALB URINE SIEMENS 12.3 MG/L; MAU/CREAT RATIO 29.3 MCG/MG (0.0-30.0)
== END ==
LOC: M PLALAB 09:45
PROVIDERS: ATTEND Family Medicine
DX: E11.9 Type 2 diabetes mellitus without complications (principal)

== ENCOUNTER → 2021-02-11 | Outpatient (CLI) | payer MEDICARE, OTHER ==
[2021-02-11 11:25] LABS: ALBUMIN 3.8 GM/DL (3.2-5.2); ALT/SGPT 34 U/L (12-78); BLOOD UREA NITROGEN 21 MG/DL (7-18); CALCIUM LEVEL 8.9 MG/DL (8.8-10.2); CARBON DIOXIDE LEVEL 31 MEQ/L (21-32); CHLORIDE LEVEL 105 MEQ/L (98-107); CHOLESTEROL LEVEL 173 MG/DL (<200); CHOLESTEROL RISK RATIO 5.406 (<5); CREATININE FOR GFR 1.01 MG/DL (0.70-1.30); GLOMERULAR FILTRATION RATE > 60.0 (>49); GLUCOSE, FASTING 119 MG/DL (70-100); HDL CHOLESTEROL 32 MG/DL (>40); LDL CHOLESTEROL 109 MG/DL (<100); NON-HDL-C 141 MG/DL; POTASSIUM SERUM 3.8 MEQ/L (3.5-5.1); SODIUM LEVEL 141 MEQ/L (136-145); TOTAL PROTEIN 7.6 GM/DL (6.4-8.2); TRIGLYCERIDES LEVEL 159 MG/DL (<150)
== END ==
LOC: M PLALAB 08:53
PROVIDERS: ATTEND Family Medicine
DX: E11.9 Type 2 diabetes mellitus without complications (principal)

== ENCOUNTER → 2021-07-15 | Outpatient (CLI) | payer MEDICARE, OTHER ==
[2021-07-15 10:34] LABS: HEMATOCRIT 44.4 % (42.0-52.0); HEMOGLOBIN 15.2 g/dl (13.5-17.5); MEAN CORPUSCULAR HGB CONC 34.2 g/dl (32.0-36.5); MEAN CORPUSCULAR VOLUME 87.7 fl (80.0-96.0); PLATELET COUNT, AUTOMATED 189 10^3/uL (150-450); RED BLOOD COUNT 5.06 10^6/uL (4.30-6.10); WHITE BLOOD COUNT 6.3 10^3/uL (4.0-10.0)
[2021-07-15 11:08] LABS: ALT/SGPT 38 U/L (12-78); BLOOD UREA NITROGEN 13 MG/DL (7-18); CALCIUM LEVEL 9.3 MG/DL (8.8-10.2); CARBON DIOXIDE LEVEL 29 MEQ/L (21-32); CHLORIDE LEVEL 106 MEQ/L (98-107); CHOLESTEROL LEVEL 154 MG/DL (<200); CHOLESTEROL RISK RATIO 4.967 (<5); CREATININE FOR GFR 0.93 MG/DL (0.70-1.30); GLOMERULAR FILTRATION RATE > 60.0 (>49); GLUCOSE, FASTING 146 MG/DL (70-100); HDL CHOLESTEROL 31 MG/DL (>40); LDL CHOLESTEROL 89 MG/DL (<100); NON-HDL-C 123 MG/DL; POTASSIUM SERUM 4.1 MEQ/L (3.5-5.1); SODIUM LEVEL 140 MEQ/L (136-145); TOTAL PROTEIN 7.7 GM/DL (6.4-8.2); TRIGLYCERIDES LEVEL 169 MG/DL (<150)
[2021-07-15 11:14] LABS: CREATININE, URINE 46.4 MG/DL; MALB URINE SIEMENS 11.2 MG/L; MAU/CREAT RATIO 24.1 MCG/MG (0.0-30.0)
[2021-07-15 11:16] LABS: HEMOGLOBIN A1c 6.4 %
== END ==
LOC: M PLALAB 08:39
PROVIDERS: ATTEND Family Medicine
DX: E11.69 Type 2 diabetes mellitus with other specified complication (principal); N52.1 Erectile dysfunction due to diseases classified elsewhere; E78.2 Mixed hyperlipidemia; I10 Essential (primary) hypertension; Z12.5 Encounter for screening for malignant neoplasm of prostate
CPT/HCPCS: 36415; 80053; 80061; 82043; 83036; 85027; G0103

== ENCOUNTER → 2021-08-05 | Outpatient (REF) | payer MEDICARE, OTHER | LOC: M SMT PRO 10:51 | PROVIDERS: ATTEND Urology | DX: C61 Malignant neoplasm of prostate (principal); N40.2 Nodular prostate without lower urinary tract symptoms ==

== ENCOUNTER → 2021-09-15 | Outpatient (CLI) | payer MEDICARE, OTHER ==
[~2021-09-15] MED LIST changes: +FLOM0.4C39 PO; +NEXI20CA PO; +SILD50TA PO
[2021-09-15 10:40] LABS: HEMOGLOBIN 15.6 g/dl (13.5-17.5); MEAN CORPUSCULAR HEMOGLOBIN 30.1 pg (27.0-33.0); MEAN CORPUSCULAR HGB CONC 33.9 g/dl (32.0-36.5); MEAN CORPUSCULAR VOLUME 88.6 fl (80.0-96.0); PLATELET COUNT, AUTOMATED 185 10^3/uL (150-450); RED BLOOD COUNT 5.19 10^6/uL (4.30-6.10); WHITE BLOOD COUNT 7.8 10^3/uL (4.0-10.0)
[2021-09-15 10:54] LABS: INR 1.02; PROTHROMBIN TIME 13.8 SECONDS (12.7-14.5)
[2021-09-15 10:55] LABS: PARTIAL THROMBOPLASTIN TIME 30.8 SECONDS (25.9-37.0)
[2021-09-15 11:10] LABS: BLOOD UREA NITROGEN 19 MG/DL (7-18); CALCIUM LEVEL 8.9 MG/DL (8.8-10.2); CARBON DIOXIDE LEVEL 30 MEQ/L (21-32); CHLORIDE LEVEL 103 MEQ/L (98-107); CREATININE FOR GFR 1.06 MG/DL (0.70-1.30); GLOMERULAR FILTRATION RATE > 60.0 (>49); GLUCOSE, FASTING 144 MG/DL (70-100); POTASSIUM SERUM 3.9 MEQ/L (3.5-5.1); SODIUM LEVEL 137 MEQ/L (136-145)
== END ==
LOC: M PLALAB 08:32 → M PLAIMG 08:32
PROVIDERS: ATTEND Urology
DX: Z01.818 Encounter for other preprocedural examination (principal); C61 Malignant neoplasm of prostate; N39.0 Urinary tract infection, site not specified; Z79.01 Long term (current) use of anticoagulants

== ENCOUNTER → 2021-09-19 | Outpatient (CLI) | payer MEDICARE, OTHER | LOC: M LABSMTC 09:09 | PROVIDERS: ATTEND Anesthesiology | DX: Z01.812 Encounter for preprocedural laboratory examination (principal); Z20.822 Contact with and (suspected) exposure to COVID-19 ==

== ENCOUNTER 2021-09-23 06:11 | Inpatient (IN) | payer MEDICARE, OTHER ==
[~2021-09-23] VITALS: Ht 172.7 cm; Wt 90.8 kg
[2021-09-23] VITALS (8 sets, daily range): BP systolic 130–178; BP diastolic 82–110; O2SAT 94
[~2021-09-23 06:11] MED LIST changes: +HEPARIN SOD (PORCINE) 5000UNITS/ML 1ML VIAL/SYRINGE SQ ONE; +ceFAZolin SOD 2 GM in IV 1 EA IV ONE
[2021-09-23] MEDS ORDERED: LR 1,000 ML IV SCH ×2 (06:25→12:10)
[2021-09-23] MEDS ORDERED: INSULIN LISPRO (NovoLOG) PER UNIT SC PRN ×2 (06:25→12:10)
[2021-09-23] MEDS ORDERED: MIDAZOLAM INJ 2MG/2ML VIAL (J2250 PER 1MG) As Ordered ONE (06:49)
[2021-09-23] MEDS ORDERED: HYDROmorphone HCL 2MG/ML 1ML VIAL As Ordered ONE (06:49)
[2021-09-23] MEDS ORDERED: dexameTHASONE 4 MG/ML 1ML VIAL (J1100 PER 1MG) As Ordered ONE (06:50)
[2021-09-23] MEDS ORDERED: ROCURONIUM BROMIDE 50 MG/5 ML VIAL As Ordered ONE ×2 (06:50→08:03)
[2021-09-23] MEDS ORDERED: fentaNYL 100 MCG/2 ML INJECTION As Ordered ONE (06:50)
[2021-09-23] MEDS ORDERED: propofoL 200 MG/20 ML VIAL As Ordered ONE ×2 (06:50→07:58)
[2021-09-23] MEDS ORDERED: LIDOCAINE 2% 100MG/5ML SDV (FOR ANES.) As Ordered ONE (06:50)
[2021-09-23] MEDS ORDERED: ONDANSETRON 4MG/2ML VIAL As Ordered ONE (06:50)
[2021-09-23] MEDS ORDERED: ACETAMINOPHEN 1000MG 100ML IV BTL (OFIRMEV) (J0131 PER 10MG) As Ordered ONE (06:50)
[2021-09-23] MEDS ORDERED: BUPIVACAINE HCL 0.25% 30ML VIAL As Ordered ONE (07:12)
[2021-09-23] MEDS ORDERED: LIDOCAINE 1% SDV 30ML VIAL As Ordered ONE (07:12)
[2021-09-23] MEDS ORDERED: DEXTROSE 50% 50 ML SYRINGE IV PRN (07:25)
[2021-09-23] MEDS ORDERED: ACETAMINOPHEN TAB 650MG DOSE (2X325MG) PO PRN (07:25)
[2021-09-23] MEDS ORDERED: PERCOCET 5MG/325MG TAB PO PRN ×2 (07:25)
[2021-09-23] MEDS ORDERED: OMEPRAZOLE 20MG CAP PO PRN (07:25)
[2021-09-23] MEDS ORDERED: GLUCOSE 4GM CHEW TABLET PO PRN (07:25)
[2021-09-23] MEDS ORDERED: GLUCAGON INJ 1MG VIAL SC PRN (07:25)
[2021-09-23] MEDS ORDERED: ONDANSETRON 4MG/2ML VIAL IV PRN ×2 (07:25→12:10)
[2021-09-23] MEDS ORDERED: LABETALOL 100MG/20ML VIAL As Ordered ONE (07:48)
[2021-09-23] MEDS ORDERED: SUGAMMADEX SODIUM 500 MG/5 ML VIAL (BRIDION) As Ordered ONE (08:03)
[2021-09-23] MEDS ORDERED: GLYCOPYRROLATE INJ 0.2 MG/ML 2 ML VIAL As Ordered ONE (08:24)
[2021-09-23] MEDS ORDERED: hydrALAZINE 20MG/ML 1ML VIAL (J0360 PER 20MG) As Ordered ONE (09:05)
[2021-09-23] MEDS ORDERED: ePHEDrine SULFATE 25 MG/5 ML(5MG/ML) SYRINGE As Ordered ONE (09:42)
[2021-09-23] MEDS ORDERED: oxyCODONE 5MG TAB PO PRN (12:10)
[2021-09-23] MEDS ORDERED: HYDROMORPHONE HCL 0.5 MG/ 0.5 ML SYRINGE (J1170 PER 1) IV PRN (12:10)
[2021-09-23] MEDS ORDERED: METOCLOPRAMIDE INJ 10MG/2ML VIAL (J2765 PER 1) IV PRN (12:10)
[2021-09-23] MEDS ORDERED: fentaNYL 100 MCG/2 ML INJECTION IV PRN (12:10)
[2021-09-23] MEDS ORDERED: hydrALAZINE 20MG/ML 1ML VIAL (J0360 PER 20MG) IV PRN (12:20)
[2021-09-23] MEDS ORDERED: LABETALOL 100MG/20ML VIAL IV PRN (12:20)
[2021-09-23 12:25] LABS: HEMATOCRIT 43.3 % (42.0-52.0); HEMOGLOBIN 14.9 g/dl (13.5-17.5); MEAN CORPUSCULAR HEMOGLOBIN 30.7 pg (27.0-33.0); MEAN CORPUSCULAR HGB CONC 34.4 g/dl (32.0-36.5); MEAN CORPUSCULAR VOLUME 89.3 fl (80.0-96.0); PLATELET COUNT, AUTOMATED 172 10^3/uL (150-450); RED BLOOD COUNT 4.85 10^6/uL (4.30-6.10); WHITE BLOOD COUNT 11.4 10^3/uL (4.0-10.0)
[2021-09-23 12:54] LABS: BLOOD UREA NITROGEN 22 MG/DL (7-18); CARBON DIOXIDE LEVEL 28 MEQ/L (21-32); CHLORIDE LEVEL 107 MEQ/L (98-107); CREATININE FOR GFR 1.26 MG/DL (0.70-1.30); GLOMERULAR FILTRATION RATE > 60.0 (>49); GLUCOSE, FASTING 225 MG/DL (70-100); SODIUM LEVEL 140 MEQ/L (136-145)
[2021-09-23] MEDS: INSULIN LISPRO (NovoLOG) PER UNIT SC SCH ×3 (13:12→18:05)
[2021-09-23] MEDS: NS 1,000 ML IV SCH (13:18)
[2021-09-23] MEDS: HEPARIN SOD (PORCINE) 5000UNITS/ML 1ML VIAL/SYRINGE SC SCH ×2 (14:51→21:13)
[2021-09-23] MEDS: ceFAZolin SOD 1 GM in D5W MINI-BAG PLUS 50 ML IV SCH ×2 (15:03→23:51)
[2021-09-23] MEDS ORDERED: bisoproloL fumarate 5 MG TAB PO SCH (21:00)
[2021-09-23] MEDS ORDERED: INSULIN LISPRO (NovoLOG) PER UNIT SC SCH (21:00)
[2021-09-23] MEDS: DOCUSATE SODIUM 100MG CAPSULE PO SCH (21:12)
[2021-09-24] VITALS (12 sets, daily range): BP systolic 134–210; BP diastolic 86–118; O2SAT 94
[2021-09-24] MEDS: NS 1,000 ML IV SCH (03:25)
[2021-09-24] MEDS: HEPARIN SOD (PORCINE) 5000UNITS/ML 1ML VIAL/SYRINGE SC SCH ×2 (05:32→16:02)
[2021-09-24] MEDS ORDERED: **hydrALAZINE HCL** 25 MG TAB PO ONE (07:00)
[2021-09-24 07:06] LABS: HEMATOCRIT 41.3 % (42.0-52.0); MEAN CORPUSCULAR HEMOGLOBIN 30.5 pg (27.0-33.0); MEAN CORPUSCULAR HGB CONC 33.9 g/dl (32.0-36.5); PLATELET COUNT, AUTOMATED 158 10^3/uL (150-450); RED BLOOD COUNT 4.59 10^6/uL (4.30-6.10); WHITE BLOOD COUNT 13.8 10^3/uL (4.0-10.0)
[2021-09-24 07:26] LABS: BLOOD UREA NITROGEN 17 MG/DL (7-18); CARBON DIOXIDE LEVEL 27 MEQ/L (21-32); CHLORIDE LEVEL 109 MEQ/L (98-107); CREATININE FOR GFR 0.97 MG/DL (0.70-1.30); GLOMERULAR FILTRATION RATE > 60.0 (>49); GLUCOSE, FASTING 160 MG/DL (70-100); POTASSIUM SERUM 3.9 MEQ/L (3.5-5.1); SODIUM LEVEL 142 MEQ/L (136-145)
[2021-09-24] MEDS ORDERED: CALCIUM CARBONATE 500 MG CHEW U/D PO PRN (07:40)
[2021-09-24] MEDS: DOCUSATE SODIUM 100MG CAPSULE PO SCH (08:34)
[2021-09-24] MEDS: INSULIN LISPRO (NovoLOG) PER UNIT SC SCH ×3 (08:35→17:20)
[2021-09-24] MEDS ORDERED: bisoproloL fumarate 5 MG TAB PO SCH (09:00)
[2021-09-24] MEDS ORDERED: PERCOCET PO (15:17)
[2021-09-24] MEDS ORDERED: BACT800T5 PO (15:17)
[2021-09-24] MEDS ORDERED: COLA100C5 PO (15:17)
== END 2021-09-24 17:33 | disposition home or self-care (01) | DRG 708 ==
LOC: M OR 06:11 → M MSPAV 13:14
PROVIDERS: ADMIT Urology; ATTEND Urology
PROC: 07BC4ZZ Excision of Pelvis Lymphatic, Percutaneous Endoscopic Approach (ICD-10-PCS; 2021-09-23)
PROC: 8E0W4CZ Robotic Assisted Procedure of Trunk Region, Percutaneous Endoscopic Approach (ICD-10-PCS; 2021-09-23)
PROC: 0VT04ZZ Resection of Prostate, Percutaneous Endoscopic Approach (ICD-10-PCS; principal; 2021-09-23 07:30)
DX: C61 Malignant neoplasm of prostate (principal); I10 Essential (primary) hypertension; E11.9 Type 2 diabetes mellitus without complications; Z79.84 Long term (current) use of oral hypoglycemic drugs; Z79.899 Other long term (current) drug therapy

== ENCOUNTER → 2021-10-24 | Outpatient (CLI) | payer MEDICARE, OTHER ==
[~2021-10-24] MED LIST changes: +BACT800T5 PO; +COLA100C5 PO; -HEPARIN SOD (PORCINE) 5000UNITS/ML 1ML VIAL/SYRINGE SQ ONE; -ceFAZolin SOD 2 GM in IV 1 EA IV ONE
== END ==
LOC: M PLALAB 09:24
PROVIDERS: ATTEND Nurse Practitioner Women's Health
DX: C61 Malignant neoplasm of prostate (principal)

== ENCOUNTER → 2022-01-15 | Outpatient (CLI) | payer MEDICARE, OTHER ==
[2022-01-15 14:45] LABS: ALBUMIN 3.8 GM/DL (3.2-5.2); ALT/SGPT 40 U/L (12-78); BLOOD UREA NITROGEN 17 MG/DL (7-18); CALCIUM LEVEL 9.4 MG/DL (8.8-10.2); CARBON DIOXIDE LEVEL 28 MEQ/L (21-32); CHLORIDE LEVEL 105 MEQ/L (98-107); CHOLESTEROL LEVEL 178 MG/DL (<200); CHOLESTEROL RISK RATIO 5.393 (<5); CREATININE FOR GFR 1.01 MG/DL (0.70-1.30); GLOMERULAR FILTRATION RATE > 60.0 (>49); GLUCOSE, FASTING 127 MG/DL (70-100); HDL CHOLESTEROL 33 MG/DL (>40); LDL CHOLESTEROL 111 MG/DL (<100); NON-HDL-C 145 MG/DL; POTASSIUM SERUM 3.7 MEQ/L (3.5-5.1); SODIUM LEVEL 139 MEQ/L (136-145); TOTAL PROTEIN 7.7 GM/DL (6.4-8.2); TRIGLYCERIDES LEVEL 170 MG/DL (<150)
[2022-01-15 14:59] LABS: HEMOGLOBIN A1c 6.9 %
== END ==
LOC: M PLALAB 11:33
PROVIDERS: ATTEND Family Medicine
DX: E78.2 Mixed hyperlipidemia (principal); E11.69 Type 2 diabetes mellitus with other specified complication

== ENCOUNTER → 2022-01-30 | Outpatient (REF) | payer MEDICARE, OTHER | LOC: M PLALAB 12:49 | PROVIDERS: ATTEND Urology | DX: C61 Malignant neoplasm of prostate (principal) ==

== ENCOUNTER → 2022-04-24 | Outpatient (CLI) | payer MEDICARE, OTHER ==
[2022-04-24 14:15] LABS: HEMOGLOBIN A1c 10.4 % (4.0-6.0)
[2022-04-24 14:23] LABS: BLOOD UREA NITROGEN 23 MG/DL (9-23); CALCIUM LEVEL 9.4 MG/DL (8.3-10.6); CARBON DIOXIDE LEVEL 28 MMOL/L (20-31); CHLORIDE LEVEL 98 MMOL/L (98-107); CREATININE FOR GFR 0.96 MG/DL (0.70-1.30); GLOMERULAR FILTRATION RATE > 60.0 (>49); GLUCOSE, FASTING 475 MG/DL (74-106); POTASSIUM SERUM 4.5 MMOL/L (3.5-5.1); SODIUM LEVEL 134 MMOL/L (136-145)
== END ==
LOC: M PLALAB 10:15
PROVIDERS: ATTEND Family Medicine
DX: E11.9 Type 2 diabetes mellitus without complications (principal)

== ENCOUNTER → 2022-05-19 | Outpatient (REF) | payer MEDICARE, OTHER ==
[2022-05-19 11:04] LABS: APPEARANCE, URINE MANUAL HAZY (CLEAR); BILIRUBIN, URINE MANUAL NEGATIVE (NEGATIVE); BLOOD URINE MANUAL POSITIVE (NEGATIVE); COLOR, URINE MANUAL YELLOW (YELLOW); GLUCOSE, URINE (UA) MANUAL NEGATIVE (NEGATIVE); KETONE, URINE MANUAL NEGATIVE (NEGATIVE); LEUKOCYTE ESTERASE, URINE MAN POSITIVE (NEGATIVE); NITRITE, URINE MANUAL NEGATIVE (NEGATIVE); PROTEIN, URINE MANUAL TRACE mg/dL (NEGATIVE); SPECIFIC GRAVITY,URINE MANUAL 1.015 (1.002-1.035); UROBILINOGEN, URINE MANUAL 1 MG mg/dl (NORMAL)
[2022-05-19 11:14] LABS: WBC, URINE TNTC /hpf (0-3)
[2022-05-19 11:15] LABS: BACTERIA, URINE SMALL AMOUNT; GRANULAR CAST, URINE 0-1 /lpf; SQUAMOUS EPITHELIAL CELL URINE SMALL AMOUNT /hpf (SMALL AMT)
[2022-05-19 11:16] LABS: MUCUS, URINE SMALL AMOUNT (NEGATIVE)
== END ==
LOC: M SMT 09:53
PROVIDERS: ATTEND Urology
DX: N39.0 Urinary tract infection, site not specified (principal)

== ENCOUNTER → 2022-05-25 | Outpatient (REF) | payer MEDICARE, OTHER | LOC: M SFHCADAM 14:35 | PROVIDERS: ATTEND Urology | DX: C61 Malignant neoplasm of prostate (principal) ==

== ENCOUNTER → 2022-05-26 | Outpatient (REF) | payer MEDICARE, OTHER ==
[2022-05-26 16:30] LABS: BASO # 0.1 10^3/uL (0.0-0.2); BASO % 0.7 % (0.0-1.0); EOS # 0.3 10^3/uL (0.0-0.5); HEMATOCRIT 43.1 % (42.0-52.0); HEMOGLOBIN 13.8 g/dl (13.5-17.5); LYMPH # 2.9 10^3/uL (1.5-5.0); LYMPH % 19.7 % (24.0-44.0); MEAN CORPUSCULAR HEMOGLOBIN 29.4 pg (27.0-33.0); MEAN CORPUSCULAR VOLUME 91.7 fl (80.0-96.0); MONO # 1.1 10^3/uL (0.0-0.8); MONO % 7.1 % (2.0-8.0); NEUTROPHILS # 10.3 10^3/uL (1.5-8.5); NEUTROPHILS % 68.8 % (36.0-66.0); PLATELET COUNT, AUTOMATED 399 10^3/uL (150-450); WHITE BLOOD COUNT 14.9 10^3/uL (4.0-10.0)
[2022-05-26 16:58] LABS: BLOOD UREA NITROGEN 24 MG/DL (9-23); CALCIUM LEVEL 9.6 MG/DL (8.3-10.6); CARBON DIOXIDE LEVEL 25 MMOL/L (20-31); CHLORIDE LEVEL 102 MMOL/L (98-107); CREATININE FOR GFR 1.15 MG/DL (0.70-1.30); GLOMERULAR FILTRATION RATE > 60.0 (>49); GLUCOSE, FASTING 165 MG/DL (74-106); POTASSIUM SERUM 5.5 MMOL/L (3.5-5.1); SODIUM LEVEL 135 MMOL/L (136-145)
== END ==
LOC: M SFHCADAM 13:21
PROVIDERS: ATTEND Physician Assistant
DX: E11.65 Type 2 diabetes mellitus with hyperglycemia (principal); N39.0 Urinary tract infection, site not specified; J20.9 Acute bronchitis, unspecified

== ENCOUNTER → 2022-05-26 | Outpatient (CLI) | payer MEDICARE, OTHER | LOC: M ADAMS 13:14 | PROVIDERS: ATTEND Physician Assistant | DX: J20.9 Acute bronchitis, unspecified (principal) ==

== ENCOUNTER → 2022-06-02 | Outpatient (CLI) | payer MEDICARE, OTHER ==
[2022-06-02 16:00] LABS: BLOOD UREA NITROGEN 30 MG/DL (9-23); CALCIUM LEVEL 9.7 MG/DL (8.3-10.6); CARBON DIOXIDE LEVEL 27 MMOL/L (20-31); CHLORIDE LEVEL 99 MMOL/L (98-107); CREATININE FOR GFR 1.11 MG/DL (0.70-1.30); GLOMERULAR FILTRATION RATE > 60.0 (>49); GLUCOSE, FASTING 184 MG/DL (74-106); POTASSIUM SERUM 4.5 MMOL/L (3.5-5.1); SODIUM LEVEL 135 MMOL/L (136-145)
== END ==
LOC: M PLALAB 10:26
PROVIDERS: ATTEND Physician Assistant
DX: E87.5 Hyperkalemia (principal)

== ENCOUNTER → 2022-07-06 | Outpatient (CLI) | payer MEDICARE, OTHER ==
[2022-07-06 14:08] LABS: HEMOGLOBIN A1c 6.9 % (4.0-6.0)
[2022-07-06 14:10] LABS: PROSTATIC SPECIFIC AG MONITOR 0.04 NG/ML (< 4.00)
[2022-07-06 14:16] LABS: BLOOD UREA NITROGEN 19 MG/DL (9-23); CALCIUM LEVEL 9.2 MG/DL (8.3-10.6); CARBON DIOXIDE LEVEL 28 MMOL/L (20-31); CHLORIDE LEVEL 104 MMOL/L (98-107); CREATININE FOR GFR 0.89 MG/DL (0.70-1.30); GLOMERULAR FILTRATION RATE > 60.0 (>49); GLUCOSE, FASTING 104 MG/DL (74-106); SODIUM LEVEL 140 MMOL/L (136-145)
== END ==
LOC: M PLALAB 11:32
PROVIDERS: ATTEND Family Medicine
DX: E11.69 Type 2 diabetes mellitus with other specified complication (principal); R97.20 Elevated prostate specific antigen [PSA]

== ENCOUNTER → 2022-10-06 | Outpatient (CLI) | payer MEDICARE, OTHER ==
[2022-10-06 10:29] LABS: HEMOGLOBIN A1c 5.5 % (4.0-6.0)
[2022-10-06 10:45] LABS: BLOOD UREA NITROGEN 20 MG/DL (9-23); CALCIUM LEVEL 9.6 MG/DL (8.3-10.6); CARBON DIOXIDE LEVEL 28 MMOL/L (20-31); CHLORIDE LEVEL 105 MMOL/L (98-107); CREATININE FOR GFR 0.95 MG/DL (0.70-1.30); GLOMERULAR FILTRATION RATE > 60.0 (>49); GLUCOSE, FASTING 109 MG/DL (74-106); POTASSIUM SERUM 4.4 MMOL/L (3.5-5.1); SODIUM LEVEL 141 MMOL/L (136-145)
== END ==
LOC: M PLALAB 08:37
PROVIDERS: ATTEND Family Medicine
DX: E11.9 Type 2 diabetes mellitus without complications (principal)

== ENCOUNTER 2022-10-09 04:16 | Emergency (ER) | payer MEDICARE, OTHER ==
[~2022-10-09] VITALS: Ht 177.8 cm; Wt 83.2 kg
[2022-10-09] MEDS: propofoL 1,000 MG in IV 1 EA IV SCH ×2 (04:26→06:36)
[2022-10-09] MEDS ORDERED: NS 1,000 ML IV SCH (04:30)
[2022-10-09] MEDS ORDERED: ETOMIDATE INJ 20MG/10ML VIAL IV ONE (04:30)
[2022-10-09] MEDS ORDERED: ROCURONIUM BROMIDE 50MG/5ML VIAL IV ONE (04:30)
[2022-10-09 04:50] LABS: BASO # 0.1 10^3/uL (0.0-0.2); BASO % 0.5 % (0.0-1.0); EOS # 0.3 10^3/uL (0.0-0.5); EOS % 1.5 % (0.0-3.0); HEMATOCRIT 43.5 % (42.0-52.0); HEMOGLOBIN 14.7 g/dl (13.5-17.5); LYMPH # 3.6 10^3/uL (1.5-5.0); LYMPH % 20.7 % (24.0-44.0); MEAN CORPUSCULAR HEMOGLOBIN 29.6 pg (27.0-33.0); MEAN CORPUSCULAR HGB CONC 33.8 g/dl (32.0-36.5); MEAN CORPUSCULAR VOLUME 87.5 fl (80.0-96.0); MONO # 1.2 10^3/uL (0.0-0.8); MONO % 6.7 % (2.0-8.0); NEUTROPHILS # 12.2 10^3/uL (1.5-8.5); NEUTROPHILS % 70.1 % (36.0-66.0); PLATELET COUNT, AUTOMATED 164 10^3/uL (150-450); RED BLOOD COUNT 4.97 10^6/uL (4.30-6.10); WHITE BLOOD COUNT 17.4 10^3/uL (4.0-10.0)
[2022-10-09 05:09] LABS: ALKALINE PHOSPHATASE 80 U/L (46-116); ALT/SGPT 41 U/L (7.0-40); AST/SGOT 34 U/L (<34); BILIRUBIN,DIRECT 0.4 MG/DL (<0.4); BILIRUBIN,TOTAL 1.1 MG/DL (0.3-1.2); BLOOD UREA NITROGEN 19 MG/DL (9-23); CALCIUM LEVEL 8.6 MG/DL (8.3-10.6); CARBON DIOXIDE LEVEL 26 MMOL/L (20-31); CHLORIDE LEVEL 102 MMOL/L (98-107); CREATININE FOR GFR 1.01 MG/DL (0.70-1.30); GLOMERULAR FILTRATION RATE > 60.0 (>49); GLUCOSE, FASTING 233 MG/DL (74-106); POTASSIUM SERUM 3.7 MMOL/L (3.5-5.1); SODIUM LEVEL 138 MMOL/L (136-145); TOTAL PROTEIN 7.3 G/DL (5.7-8.2)
[2022-10-09 05:10] LABS: ABG BASE EXCESS -2.7 (-2.0-2.0); ABG HCO3 22.3 MMOL/L (22.0-26.0); ABG O2 SATURATION 96.5 % (95.0-99.0); ABG PARTIAL PRESSURE CO2 39.3 mmHg (35.0-45.0); ABG PARTIAL PRESSURE O2 89.5 mmHg (75.0-100.0); ABG STANDARD HCO3 22.2 MMOL/L. (22.0-26.0); ABG TOTAL CO2 23.5 MMOL/L (23.0-31.0); ABG pH (ARTERIAL) 7.371 UNITS (7.350-7.450)
[2022-10-09] MEDS: LABETALOL HCL 200 MG in NS 160 ML IV SCH ×2 (05:10→05:46)
[2022-10-09 05:11] LABS: THYROID STIMULATING HORMONE 1.721 uIU/ML (0.55-4.78)
[2022-10-09 05:46] VITALS: BP 124/64
[2022-10-09] MEDS ORDERED: FENTANYL DRIP LOCK BOX KEY 1 EACH XX PRN (06:10)
[2022-10-09] MEDS ORDERED: fentaNYL CITRATE/NaCl 1,000 MCG in IV 1 EA IV SCH (06:10)
[2022-10-09] MEDS ORDERED: VECURONIUM BROMIDE 10MG VIAL IV STA (06:25)
[2022-10-09 07:32] VITALS: BP 132/93; TEMP 98.5; O2SAT 99
== END 2022-10-09 07:35 | disposition short-term general hospital (02) ==
LOC: M ED 04:16 → EDBD 04:16 → M ED 07:35
DX: J96.90 Respiratory failure, unspecified, unspecified whether with hypoxia or hypercapnia (principal); I62.00 Nontraumatic subdural hemorrhage, unspecified; I10 Essential (primary) hypertension; K21.9 Gastro-esophageal reflux disease without esophagitis; G47.33 Obstructive sleep apnea (adult) (pediatric); F41.9 Anxiety disorder, unspecified; F32.A Depression, unspecified; Z85.46 Personal history of malignant neoplasm of prostate; Z91.012 Allergy to eggs; Z91.018 Allergy to other foods; Z79.899 Other long term (current) drug therapy; Z79.84 Long term (current) use of oral hypoglycemic drugs
CPT/HCPCS: 31500; 36600; 51702; 70450; 70490; 71045; 71250; 80048; 80076; 82803; 83605; 84443; 85025; 87040; 87077; 87635; 93005; 93041; 94760; 96365; 96366; 96367; 96375; 99285; J3010